=== PATIENT | female | born 1995 | race African-American/Black ===

== ENCOUNTER 2022-01-14 17:42 | Emergency (ER) | payer OTHER ==
[~2022-01-14] VITALS: Ht 167.6 cm; Wt 65.3 kg
[2022-01-14 17:57] VITALS: BP 112/77
--- NOTE | 2022-01-14 18:35 | NUR ---
PT CALLED BY MIKAYLA ESPARZA IN LOBBY AND OUTSIDE WITH NO ANSWER.
--- NOTE | 2022-01-14 20:23 | NUR ---
NOTIFIED BY MIKAYLA ESPARZA AT WAS CALLED AGAIN IN LOBBY AND OUTSIDE STILL WITH NO ANSWER. PATIENT LEFT WITHOUT BEING SEEN BY MIKAYLA ESPARZA. NO FURTHER CARE PROVIDED FOR PATIENT.
== END 2022-01-14 18:35 | disposition left against medical advice (07) ==
LOC: MED 17:42
DX: R50.9 Fever, unspecified (principal); Z53.21 Procedure and treatment not carried out due to patient leaving prior to being seen by health care provider